=== PATIENT | female | born 1955 | race Caucasian/White ===

== ENCOUNTER → 2018-03-29 18:47 | Outpatient (CLI) | payer MEDICAID ==
[~2018-03-29 18:47] MED LIST: LISINOPRIL-HCTZ1 T11 PO; ZANTAC150 MG PO
[2018-04-30 09:12] VITALS: BMI 29.2
== END | disposition home or self-care (01) ==
LOC: D.MAMMO 15:30
DX: Z12.31 Encounter for screening mammogram for malignant neoplasm of breast (principal)

== ENCOUNTER 2018-04-30 08:30 | Day surgery (SDC) | payer MEDICAID ==
[2018-04-26 09:48] LABS: BASOPHILS 0.5 % (0-2); EOSINOPHILS 1.7 % (0-7); HEMOGLOBIN 16.2 g/dL (12-16); IMMATURE GRANULOCYTES 0.9 % (0-5); LYMPHOCYTES 27.2 % (15-50); MCH 30.6 pg (26.0-34.0); MCHC 35.2 g/dL (31.0-37.0); MCV 86.8 fL (80.0-100.0); MONOCYTES 6.2 % (2-11); NEUTROPHILS 63.5 % (40-80); PLATELET COUNT 293 10x3/uL (130-400); RDW 12.3 % (11.5-14.5); WBC 10.2 10x3/uL (4.8-10.8)
[~2018-04-30] VITALS: Ht 170.2 cm; Wt 84.4 kg
--- NOTE | ~2018-04-30 | OP ---
PATIENT NAME: PRANAV MORRISON MEDICAL RECORD: [id number] :55 LOCATION:D.OPS ADMISSION DATE: SURGEON: RAHAT HE MD DATE OF OPERATION: 04/30/2018 PREOPERATIVE DIAGNOSIS: Postmenopausal bleeding. POSTOPERATIVE DIAGNOSES: 1. Postmenopausal bleeding. 2. Uterine polypoid mass (yes). SURGEON: Rahat He MD ROASTER OPERATOR: Onel Acevedo. ANESTHESIA: General. FINDINGS: Vaginal vault is unremarkable. The uterus sounds to 7.5 to 8 cm. There are multiple polypoid masses located inside the uterine cavity. SPECIMENS REMOVED: Endometrial curettings. SPECIMEN DISPOSITION: Pathology. ESTIMATED BLOOD LOSS: Minimal. FLUIDS: 1 liter lactated Ringer's. URINE OUTPUT: Quantity sufficient void prior to this procedure. COMPLICATIONS: None. DRAINS: None. INDICATIONS: The patient is a 63-year-old female with postmenopausal bleeding. The patient has been given option of D&C versus endometrial biopsy in clinic and she desires a D&C. The patient understands risks and benefits of this procedure as well as its limitations. DESCRIPTION OF PROCEDURE: After informed consent was assured, the patient was taken to the operating room, anesthetic was obtained without difficulty. The patient is now prepped and draped in the usual sterile fashion. The patient now has a speculum introduced in the vagina and the cervix was visualized, grasped with a single tooth tenaculum and placed on gentle traction. The cervix was now dilated to accommodate a hysteroscope, which was inserted without difficulty. The above findings were encountered. At this point, the cervix was further dilated and a #2 curette was used to perform uterine scrapings. Good cry was obtained throughout and moderate copious amounts of tissue was returned. This was sent to pathology. Single tooth tenaculum was now removed and puncture sites were found to be hemostatic. The patient was taken down from the stirrups. Sponge, lap, and needle counts correct times 2. The patient was awakened and went through the recovery area in stable condition. TRANSINT:[id number] Voice Confirmation ID: [id number] DOCUMENT ID: [id number] OPERATIVE REPORT [id number] PRANAV MORRISON RAHAT HE MD at 1305 CC: [id number] DICTATION DATE: 04/30/18 [address] OPERATOR: 04/30/18 1211 [facility] [address] [place], [facility]
[2018-04-30 09:12] VITALS: BP 134/73; Ht 170.2 cm; Wt 84.4 kg
== END 2018-04-30 13:40 | disposition home or self-care (01) ==
LOC: D.OPS 08:30 → D.PAN 09:00 → D.OPS 09:00
PROVIDERS: Obstetrics & Gynecology
DX: N84.0 Polyp of corpus uteri (principal); Z01.812 Encounter for preprocedural laboratory examination

== ENCOUNTER → 2018-05-07 22:56 | Outpatient (CLI) | payer MEDICAID ==
[2018-04-30 09:12] VITALS: BMI 29.2
== END | disposition home or self-care (01) ==
LOC: D.MAMMO 14:00
DX: R92.8 Other abnormal and inconclusive findings on diagnostic imaging of breast (principal)

== ENCOUNTER 2018-11-05 08:00 | Outpatient (CLI) | payer MEDICAID ==
[2018-04-30 09:12] VITALS: BMI 29.2
== END 2018-11-05 09:00 | disposition home or self-care (01) ==
LOC: D.MAMMO 08:00
PROVIDERS: ATTEND Family Medicine
DX: R92.8 Other abnormal and inconclusive findings on diagnostic imaging of breast (principal)

== ENCOUNTER 2020-03-03 08:00 | Outpatient (CLI) | payer MEDICAID ==
[2018-04-30 09:12] VITALS: BMI 29.2
== END 2020-03-03 13:48 | disposition home or self-care (01) ==
LOC: D.MAMMO 08:00
PROVIDERS: ATTEND Family Medicine
DX: Z12.31 Encounter for screening mammogram for malignant neoplasm of breast (principal)

== ENCOUNTER → 2020-03-11 13:03 | Outpatient (CLI) | payer MEDICAID ==
[2018-04-30 09:12] VITALS: BMI 29.2
== END | disposition home or self-care (01) ==
LOC: D.MAMMO 13:03
PROVIDERS: ATTEND Family Medicine
DX: R92.8 Other abnormal and inconclusive findings on diagnostic imaging of breast (principal)